=== PATIENT | female | born 1950 | race Caucasian/White ===

== ENCOUNTER 2016-09-19 12:08 | Emergency (ER) | payer OTHER ==
[~2016-09-19] VITALS: Ht 157.5 cm; Wt 51.8 kg
[2016-09-19 12:11] VITALS: Ht 157.5 cm; Wt 51.8 kg
[2016-09-19] MEDS ORDERED: DILTIAZEM 25 MG INJ IV ONE (12:30)
[2016-09-19] MEDS ORDERED: ACET-2047 PO (12:39)
[2016-09-19] MEDS ORDERED: ATOR40TA68 PO (12:39)
[2016-09-19] MEDS ORDERED: ASPI325T4 PO (12:39)
[2016-09-19] MEDS ORDERED: CLOT10TR6 MM (12:40)
[2016-09-19] MEDS ORDERED: DOCU-144 PO (12:42)
[2016-09-19] MEDS ORDERED: DILT420T7 PO (12:42)
[2016-09-19] MEDS ORDERED: EPO10ESRD SC (12:43)
[2016-09-19] MEDS ORDERED: ERGO500037 PO (12:44)
[2016-09-19 12:45] LABS: ADD SCAN DIFF NO
[2016-09-19] MEDS ORDERED: ADV25050 INHALATION (12:45)
[2016-09-19] MEDS ORDERED: FLUT16SP17 NASAL (12:45)
[2016-09-19] MEDS ORDERED: ISOS30TA5 PO (12:46)
[2016-09-19] MEDS ORDERED: FURO-110 PO (12:46)
[2016-09-19] MEDS ORDERED: HYDR-3671 PO (12:46)
[2016-09-19] MEDS ORDERED: LATA2.5D2 BOTH EYES (12:47)
[2016-09-19] MEDS ORDERED: LEVA1.2527 INHALATION (12:48)
[2016-09-19] MEDS ORDERED: MONT10TA21 PO (12:49)
[2016-09-19 12:50] LABS: BASOPHIL # 0.1 10^3/ul (0.0-0.1); BASOPHILS % 0.5 % (0.0-2.0); EOSINOPHILS # 0.1 10^3/ul (0.0-0.5); HEMATOCRIT 34.8 % (37.0-47.0); HEMOGLOBIN 10.5 g/dl (12.0-16.0); LYMPHOCYTES # 2.8 10^3/ul (0.8-2.9); LYMPHOCYTES % 24.1 % (15.0-51.0); MEAN CORPUSCULAR HEMOGLOBIN 32.5 pg (29.0-33.0); MEAN CORPUSCULAR HGB CONC 30.2 g/dl (32.0-37.0); MEAN CORPUSCULAR VOLUME 107.7 fl (82.0-101.0); MEAN PLATELET VOLUME 9.3 fl (7.4-10.4); MONOCYTE # 1.2 10^3/ul (0.3-0.9); MONOCYTES % 10.1 % (0.0-11.0); NEUTROPHIL # 7.3 10^3/ul (1.6-7.5); NEUTROPHILS % 63.8 % (39.0-77.0); PLATELET COUNT 295 10^3/UL (140-415); RED BLOOD COUNT 3.23 10^6/ul (4.20-5.40); RED CELL DISTRIBUTION WIDTH 16.3 % (11.5-14.5); WHITE BLOOD COUNT 11.4 10^3/ul (4.8-10.8)
[2016-09-19] MEDS ORDERED: ONDA4TAB14 PO (12:51)
[2016-09-19] MEDS ORDERED: OXYC-279 PO (12:52)
[2016-09-19] MEDS ORDERED: POLY17PO6 PO (12:53)
[2016-09-19] MEDS ORDERED: PANT40TA3 PO (12:53)
--- NOTE | 2016-09-19 12:53 | RADRPT ---
PROCEDURE: XR Chest. CLINICAL INDICATION: chest pain TECHNIQUE: Single frontal view of the chest was obtained COMPARISON: None FINDINGS: The heart and mediastinum are within normal limits. There is a right-sided Perma-Cath in place. The lungs are clear. There is no pleural effusion or pneumothorax. RPTAT: AA IMPRESSION: No acute disease. .Jeet Sanchez MD, MD Date Time Electronically viewed and signed by .Jeet Sanchez MD, on 09/19/2016 12:53 .S/
--- NOTE | 2016-09-19 12:55 | ERA ---
ER Documentation Chief Complaint Date/Time DATE: 09/19/16 TIME: 12:48 Chief Complaint sent [facility] for tachycardia HPI 65-year-old female history of atrial fibrillation, not anticoagulated secondary to GI bleed in the past who presents for tachycardia prior to dialysis. The patient states that she feels well she states compliance with medications that include Cardizem. She does not note chest pain or shortness of breath, no pleuritic pain and no significant palpitations. Heart rate was 150s at triage and 111 upon batting. Patient did not receive dialysis today. ROS All systems reviewed and are negative except as per history of present illness. Medications Home Meds Reported Medications Sennosides* (Senna Lax*) 8.6 Mg Tablet, 1 TAB PO QHS, TAB 09/19/16 Sevelamer Carbonate* (Renvela*) 800 Mg Tablet, 1.6 GM PO WITH MEALS, TAB 09/19/16 Simethicone* (Mylicon*) 80 Mg Tab, 160 MG PO BID, TAB 09/19/16 Tiotropium Piru* (Spiriva*) 18 Mcg Cap.w.dev, 1 CAP INHALATION DAILY, #30 CAP 09/19/16 Sulfasalazine EC* (Azulfidine (Entab)*) 500 Mg Tabec, 1500 MG PO BID, #60 TAB 09/19/16 Esomeprazole Mag Trihydrate (Nexium) 40 Mg Capsule.dr, 40 MG PO DAILY, #30 CAP 09/19/16 Mirtazapine* (Mirtazapine*) 15 Mg Tablet, 15 MG PO HS, TAB 09/19/16 Lactobacillus Combo No.11 (Probiotic) 1 Each Cap.sprink, 1 CAP PO DAILY, CAP 09/19/16 Denosumab (Prolia) 60 Mg/1 Ml Disp.syrin, 60 MG SQ every six months 09/19/16 Prednisone* (Prednisone*) 5 Mg Tab, 6 MG PO every other day, TAB alternate with 5 mg 09/19/16 Prednisone* (Prednisone*) 5 Mg Tab, 5 MG PO every other day, TAB alternate with 6mg 09/19/16 Polyethylene Glycol* (Miralax*) 17 Gm Powd.pack, 17 GM PO DAILY, #30 PACKET 09/19/16 Pantoprazole* (Protonix*) 40 Mg Tablet.dr, 40 MG PO DAILY, TAB 09/19/16 Oxycodone HCl/Acetaminophen (Percocet 5-325 mg Tablet) 1 Each Tablet, 2 EACH PO Q4 Y for PAIN, TAB 09/19/16 Ondansetron (Ondansetron Odt) 4 Mg Tab.rapdis, 4 MG PO Q6H Y for NAUSEA AND/OR VOMITING, TAB 09/19/16 Montelukast Sodium* (Singulair*) 10 Mg Tablet, 10 MG PO QHS, #30 TAB 09/19/16 Levalbuterol Hcl* (Xopenex*) 1.25 Mg/3 Ml Vial.neb, 1.25 MG INHALATION Q6H for WHEEZING AND SOB, EA 09/19/16 Latanoprost (Latanoprost) 2.5 Ml Drops, 1 DROP BOTH EYES QHS, #1 BOTTLE 09/19/16 Isosorbide Mononitrate* (Isosorbide Mononitrate*) 30 Mg Tab.er.24h, 30 MG PO DAILY, TAB 09/19/16 Hydralazine Hcl* (Hydralazine Hcl*) 25 Mg Tab, 25 MG PO TID, #90 TAB 09/19/16 Furosemide* (Lasix*) 20 Mg Tablet, 20 MG PO DAILY, TAB 09/19/16 Salmeterol Xinaf/Fluticasone* (Advair*) 250-50 Diskus Inhaler, 1 INH INHALATION BID, #1 INHALER 09/19/16 Fluticasone Propionate* (Fluticasone Propionate* Nasal) 50 Mcg/[place] - [address] [place].susp, 1 SPRAY NASAL DAILY, #1 BOTTLE TO EACH NOSTRIL 09/19/16 Ergocalciferol (Vitamin D2) (VITAMIN D2) 50,000 Unit Capsule, 14125 UNIT PO every monday, CAP 09/19/16 Epoetin Stu (Epogen) 10,000 Units/Ml Soln, 03327 UNITS SC once a week, VIAL 09/19/16 Docusate Sodium* (Colace*) 100 Mg Capsule, 100 MG PO BID, #60 CAP 09/19/16 Diltiazem HCl (Diltiazem ER) 420 Mg Tab.er.24h, 420 MG PO DAILY, #30 TAB 09/19/16 Clotrimazole* (Clotrimazole*) 10 Mg Bari, 10 MG MM 5 TIMES DAILY, TAB 09/19/16 Atorvastatin* (Atorvastatin*) 40 Mg Tablet, 40 MG PO QHS, #30 TAB 09/19/16 Aspirin* (Aspirin*) 325 Mg Tablet, 325 MG PO DAILY, TAB 09/19/16 Acetaminophen* (Acetaminophen*) 650 Mg Tablet, 650 MG PO Q6H Y for PAIN AND OR ELEVATED TEMP, #30 TAB 09/19/16 Allergies Allergies: Coded Allergies: amikacin (Unverified Allergy, Unknown, 09/19/16) azathioprine (Unverified Allergy, Unknown, 09/19/16) codeine (Unverified Allergy, Unknown, 09/19/16) fluticasone (Unverified Allergy, Unknown, 09/19/16) levofloxacin (Unverified Allergy, Unknown, 09/19/16) methotrexate (Unverified Allergy, Unknown, 09/19/16) nabumetone (Unverified Allergy, Unknown, 09/19/16) polymyxin B (Unverified Allergy, Unknown, 09/19/16) sorbitol (Unverified Allergy, Unknown, 09/19/16) sulfamethoxazole (Unverified Allergy, Unknown, 09/19/16) tobramycin (Unverified Allergy, Unknown, 09/19/16) trimethoprim (Unverified Allergy, Unknown, 09/19/16) PMhx/Soc History of Surgery: Yes (avf placement right arm) Anesthesia Reaction: No Hx Neurological Disorder: No Hx Respiratory Disorders: Yes (copd) Hx Cardiac Disorders: Yes (afib, htn) Hx Psychiatric Problems: No Hx Miscellaneous Medical Probl: Yes (ckd stage iv, rheumatoid arthritis, glaucoma, anemia) Hx Alcohol Use: No Hx Substance Use: No Hx Tobacco Use: No Smoking Status: Never smoker FmHx Family History: No diabetes Physical Exam Vitals Vital Signs Date Time Temp Pulse Resp B/P Pulse Ox O2 Delivery O2 Flow Rate FiO2 09/19/16 12:48 98.5 93 18 115/58 98 Room Air 09/19/16 12:41 Nasal Cannula 09/19/16 12:11 98.1 159 18 132/66 96 Physical Exam General: Well developed, well nourished, no acute distress Head: Normocephalic, atraumatic. Eyes: Pupils equally reactive, EOM intact ENT: Moist mucous membranes Neck: Supple, no lymphadenopathy Respiratory: Lungs clear bilaterally, no distress Cardiovascular: Tachycardia, irregularly irregular, no murmurs, rubs, or gallops Abdominal: Soft, non-tender, non-distended, no peritoneal signs : Deferred MSK: No edema, no unilateral swelling, 5/5 strength Neurologic: Alert and oriented, moving all extremities, normal speech, no focal weakness, no cerebellar signs Skin: No rash Psych: Normal mood Result Diagram: 09/19/16 1235 09/19/16 1235 Results 24 hrs Laboratory Tests Test 09/19/16 12:35 White Blood Count 11.410^3/ul Red Blood Count 3.2310^6/ul Hemoglobin 10.5g/dl Hematocrit 34.8% Mean Corpuscular Volume 107.7fl Mean Corpuscular Hemoglobin 32.5pg Mean Corpuscular Hemoglobin Concent 30.2g/dl Red Cell Distribution Width 16.3% Platelet Count 22615^3/UL Mean Platelet Volume 9.3fl Neutrophils % 63.8% Lymphocytes % 24.1% Monocytes % 10.1% Eosinophils % 1.0% Basophils % 0.5% Nucleated Red Blood Cells % 0.0/100WBC Neutrophils # 7.310^3/ul Lymphocytes # 2.810^3/ul Monocytes # 1.210^3/ul Eosinophils # 0.110^3/ul Basophils # 0.110^3/ul Nucleated Red Blood Cells # 0.010^3/ul Prothrombin Time 12.6Sec Prothrombin Time Ratio 1.0 INR International Normalized Ratio 0.94 Activated Partial Thromboplast Time 59.2Sec Sodium Level 137mmol/L Potassium Level 4.6mmol/L Chloride Level 97mmol/L Carbon Dioxide Level 30mmol/L Anion Gap 15 Blood Urea Nitrogen 55mg/dl Creatinine 3.96mg/dl Glucose Level 104mg/dl Calcium Level 10.2mg/dl Troponin I < 0.012ng/ml Current Medications Medications (Trade) Dose Ordered Sig/Pavithra Route PRN Reason Start Time Stop Time Status Last Admin Dose Admin Diltiazem HCl (Cardizem Iv) 10 mg ONCE ONCE IV 09/19/16 12:30 09/19/16 12:31 DC 09/19/16 13:03 Procedures/MDM EKG, MONITORS, & DIAGNOSTIC IMAGING: EKG: I reviewed and interpreted a 12-lead EKG. Rhythm: Atrial fibrillation with rapid ventricular response Ectopy: None Intervals: No abnormalities ST segments: No elevations or depressions T waves: No contiguous inversions Chest x-ray: I reviewed and interpreted a 1 view of the chest Mediastinum: No enlargement Cardiac silhouette: No cardiomegaly Airspace: Clear lung go bilaterally without evidence of pneumothorax Bones: No evidence of fracture LAB INTERPRETATION: No hyperkalemia, negative troponin MEDICAL DECISION MAKING: The patient presents to the emergency room with A. fib with RVR. She has a history of chronic atrial fibrillation and a educated medical decision making occurred and decision was made for no anticoagulants given history of GI bleed. The patient's heart rate is improved around 100. At this time I do not believe hospitalization is necessary. We will continue with rate control here in the emergency room and evaluate for any evidence of hyperkalemia or endorgan dysfunction including troponin elevation. However, the patient is asymptomatic and hemodynamically stable. The patient may be discharged for dialysis session today as long as there is no evidence of endorgan dysfunction or significant hyperkalemia. I will correlate care with her general road supervisor. ER COURSE: The patient's heart rate has improved with 10 mg of Cardizem. The patient remains asymptomatic and has no evidence of hyperkalemia or troponin elevation. The patient is stable for discharge and can receive dialysis today. We have reached out to the patient's dialysis center as well as her general road supervisor. I kept the patient and/or family informed of laboratory and diagnostic imaging results throughout the emergency room course. DISPOSITION PLAN: We discussed follow up with the patient's primary care doctor within 24 to 48 hours as needed. We also discussed return to the emergency room for worsening symptoms or worsening condition. Outpatient referral: Dialysis today Departure Diagnosis: Primary Impression: Atrial fibrillation with RVR Additional Impression: End stage renal disease on dialysis Condition: Stable CARMEL BRANDT MD Sep 19, 2016 12:55
[2016-09-19] MEDS ORDERED: DENO60DI SQ (12:56)
[2016-09-19] MEDS ORDERED: PRED5 PO (12:56)
[2016-09-19] MEDS ORDERED: LACT1CAP56 PO (12:57)
[2016-09-19] MEDS ORDERED: MIRT15TA5 PO (12:59)
[2016-09-19] MEDS ORDERED: ESOM40CA PO (12:59)
[2016-09-19] MEDS ORDERED: AZU500E PO (12:59)
[2016-09-19] MEDS ORDERED: TIOT18CA INHALATION (13:00)
[2016-09-19] MEDS ORDERED: MYL80 PO (13:01)
[2016-09-19] MEDS ORDERED: SEVE800T7 PO (13:02)
[2016-09-19] MEDS ORDERED: SENN-53 PO (13:02)
[2016-09-19 13:06] LABS: INR 0.94; PROTIME 12.6 Sec (12.2-14.2)
[2016-09-19 13:07] LABS: PARTIAL THROMBOPLASTIN TIME 59.2 Sec (25.0-35.0)
[2016-09-19 13:35] LABS: ANION GAP 15 (8-16); BLOOD UREA NITROGEN 55 mg/dl (7-20); CALCIUM 10.2 mg/dl (8.4-10.2); CARBON DIOXIDE 30 mmol/L (21-31); CHLORIDE 97 mmol/L (97-110); CREATININE 3.96 mg/dl (0.44-1.00); GLUCOSE 104 mg/dl (70-220); POTASSIUM 4.6 mmol/L (3.5-5.1); SODIUM 137 mmol/L (135-144)
[2016-09-19 13:49] LABS: TROPONIN-I < 0.012 ng/ml (0.00-0.12)
[2016-09-19 14:16] VITALS: BP 137/68; PULSE 83; RESP 20; TEMP 98.1
== END 2016-09-19 14:16 | disposition home or self-care (01) ==
LOC: E/R 12:08
DX: I48.91 Unspecified atrial fibrillation (principal); I12.0 Hypertensive chronic kidney disease with stage 5 chronic kidney disease or end stage renal disease; N18.6 End stage renal disease; J44.9 Chronic obstructive pulmonary disease, unspecified; Z79.82 Long term (current) use of aspirin; Z99.2 Dependence on renal dialysis
CPT/HCPCS: 36415; 71010; 80048; 84484; 85025; 85610; 85730; 93005; 96374